=== PATIENT | female | born 1955 | race Caucasian/White ===

== ENCOUNTER 2020-09-13 13:25 | Outpatient (REF) | payer MEDICARE, SELFPAY | END 2020-09-13 13:26 | disposition home or self-care (01) | LOC: HO.SCI 13:25 | PROVIDERS: Visit Provider Otolaryngology | DX: Z13.89 Encounter for screening for other disorder (principal) ==

== ENCOUNTER 2020-09-20 08:40 | Outpatient (REF) | payer MEDICARE, SELFPAY ==
--- NOTE | 2020-09-20 | MR_ITS ---
EXAMINATION: MR BRAIN WITHOUT AND WITH CONTRAST CLINICAL INFORMATION: Left-sided tinnitus. COMPARISON: None. TECHNIQUE: Multiplanar, multisequential imaging was obtained without and with intravenous contrast. Intravenous contrast: Gadavist 10 mL. FINDINGS: No diffusion abnormality is seen. Nonspecific subcentimeter foci of T2 hyperintense signal change in the cerebral white matter may be due to chronic microangiopathy. The ventricles are normal in size. No mass effect or midline shift is evident. No extra-axial fluid collections are noted. The brainstem and cerebellum are normal. There is no abnormal parenchymal or leptomeningeal enhancement. The VII and VIII cranial nerve complexes are normal in course and caliber. No signal abnormality is visualized within the inner ear structures on the precontrast axial T1-weighted sequence. Fluid signal is preserved within the cochlea, semicircular canals, and vestibule on the high-resolution axial FIESTA sequence. No cerebellopontine angle lesion is noted. There is no abnormal labyrinthine or intracanalicular enhancement on postcontrast imaging. The craniovertebral junction, marrow signal, and midline structures are normal. The gradient acquisition is normal. The visualized portions of the major intracranial flow voids at the level of the [place] are preserved. The dural venous sinus flow voids are maintained. The mastoid air cells and paranasal sinuses are fairly well aerated. MR/MR head/brain wo/w con IMPRESSION: No retrocochlear pathology. Nonspecific mild scattered white matter signal changes which may be due to chronic microangiopathy.
[2020-09-20 09:25] LABS: Blood Urea Nitrogen 13 mg/dL (9-16); Estimated Glomerular Filt Rate > 60
== END 2020-09-20 08:41 | disposition home or self-care (01) ==
LOC: HO.MRI 08:40
PROVIDERS: PCP Internal Medicine; Visit Provider Otolaryngology
DX: D33.3 Benign neoplasm of cranial nerves (principal); H93.13 Tinnitus, bilateral
CPT/HCPCS: 36415; 70553; 82565; 84520; A9585

== ENCOUNTER 2025-06-17 10:26 | Outpatient (AMB) | payer MEDICARE, SELFPAY | END 2025-06-17 10:27 | disposition home or self-care (01) | LOC: HO.HMGAL 10:26 | PROVIDERS: PCP Nurse Practitioner Family; Visit Provider Registered Nurse Emergency | DX: J30.89 Other allergic rhinitis (principal) | CPT/HCPCS: 95117; 95165 ==

== ENCOUNTER 2025-06-25 10:17 | Outpatient (REF) | payer MEDICARE, SELFPAY ==
[2025-06-25 11:25] LABS: MANUAL DIFF FLAG NO
[2025-06-25 12:24] LABS: Hematocrit 38.4 % (37.0-47.0); Hemoglobin 11.5 g/dl (12.0-16.0); Imm Gran Abs Auto 0.04 X10*3/uL (0.00-0.03); Imm Gran Pct Auto 0.5 % (0.0-0.4); Lymphocytes Absolute Auto 1.5 X10*3/uL (1.2-4.9); Mean Corpuscular HGB Conc 29.9 g/dl (31.0-35.0); Mean Corpuscular Hemoglobin 21.9 pg (27.0-33.0); Mean Corpuscular Volume 73.0 fL (80.0-98.0); NRBC Abs Auto 0.000 X10*3/uL (0.0-0.012); NRBC Pct Auto 0.0 /100WBC (0.0-0.2); Platelet Count 276 X10*3/uL (160-400); Red Blood Count 5.26 X10*6/uL (4.20-5.50); White Blood Count 8.6 X10*3/uL (4.8-10.8)
[2025-06-30 03:14] LABS: Class Alternaria alternata 0/1; Class Aspergillus fumigatus 0; Class Bermuda Grass 0; Class Birch 0; Class Cat Dander 0/1; Class Cladosporium herbarum 0; Class Cockroach 0; Class Common Ragweed 0; Class Cottonwood 0; Class Derm. pterony 0; Class Dermatophagoides farinae 0; Class Dog Dander 0; Class Elm 0; Class Maple Box Elder 0; Class Mountain Cedar 0; Class Mouse Urine Protein 0; Class Mugwort 0; Class Oak 0; Class Penicillium crysogenum 0; Class Rough Pigweed 0; Class Sheep Sorrel 0; Class Sycamore 0; Class Timothy Grass 0; Class Walnut Tree 0; Class White Ash 0; Class White Mulberry 0; D002 - IgE D farinae <0.10 kU/L; E001 - IgE Cat Dander 0.11 kU/L; E005 - IgE Dog Dander <0.10 kU/L; G006 - IgE Timothy Grass <0.10 kU/L; I006-IgE Cockroach, German <0.10 kU/L; M002 - IgE Cladosporium herbar <0.10 kU/L; M003 - IgE Aspergillus fumigat <0.10 kU/L; M006 - IgE Alternaria alternat 0.27 kU/L; T001 IgE Maple/Box Elder <0.10 kU/L; T006 - IgE Cedar, Mountain <0.10 kU/L; T007 - IgE Oak, White <0.10 kU/L; T008 IgE Elm, American <0.10 kU/L; T010 - IgE Walnut <0.10 kU/L; T011 - IgE Maple Leaf Sycamore <0.10 kU/L; T014 - IgE Cottonwood <0.10 kU/L; T015 - IgE Ash, White <0.10 kU/L; T070 - IgE White Mulberry <0.10 kU/L; W001 - IgE Ragweed, Short <0.10 kU/L; W006 - IgE Mugwort <0.10 kU/L; W014 IgE Pigweed, Common <0.10 kU/L; W018 IgE Sheep Sorrel <0.10 kU/L
[2025-07-01 13:45] LABS: Asperg fumigatus Precip Abs NEGATIVE; Micropoly faeni Abs NEGATIVE; Saccharo pora viridis Abs NEGATIVE; Thermo candidus Abs NEGATIVE
== END 2025-06-25 10:18 | disposition home or self-care (01) ==
LOC: HO.LAB 10:17
PROVIDERS: PCP Nurse Practitioner Family; Referring Provider Nurse Practitioner Family; Visit Provider Hospitalist
DX: J44.89 Other specified chronic obstructive pulmonary disease (principal); T78.40XA Allergy, unspecified, initial encounter; G47.33 Obstructive sleep apnea (adult) (pediatric); R91.8 Other nonspecific abnormal finding of lung field
CPT/HCPCS: 36415; 82103; 82784; 82785; 85025; 85652; 86003; 86331; 86606; 86609; 99202

== ENCOUNTER 2025-06-25 10:17 | Outpatient (AMB) | payer MEDICARE, SELFPAY ==
--- NOTE | 2025-06-25 10:19 | A.OFFVIS_ITS ---
Vital Signs 06/25/25 10:23 Height 5 ft 3 in Weight 272 lb 4.334 oz BMI 48.2 BP 148/70 H Blood Pressure Location Rt brachial Position Sitting Pulse 76 Pulse Source Pulse Oximeter Pulse Oximetry (%) 96 Oxygen Delivery Method Room Air Intake Visit Reasons: COPD Government Contracts Manager Required: No Accompanied by: Self / Same As Patient Allergies lisinopril Allergy (Intermediate, Verified 06/25/25 10:24) cough HPI Comments Details: The patient is here for pulmonary evaluation. The patient is a 69 year woman, active smoker, presenting with worsening respiratory symptoms. The patient is participating in the lung cancer screening program at [facility]. We did personally review her last CT scan demonstrating some minimal emphysema and some pulmonary nodules subcentimeter in nature. However, more significant the patient did have significant calcifications of the major vessels in addition to the coronary arteries. The patient does have dyspnea on exertion. [id number]-rq-dchbyddr severity. Denies any chest pain. She did start her rescue inhaler. She did undergo pulmonary function studies which I personally reviewed. There were done at [facility]. The patient appears to have a mild obstructive ventilatory defect consistent with asthma COPD overlap syndromes specially with a history of asthma as a child. Therefore, will go ahead and start her on a maintenance inhaler. the patient also complains of significan Productive cough. Some degree it is postnasal with the upper airway cough syndrome she does have significant cobblestoning in the back of the throat. Also has significant allergies. Will go ahead and request blood work at this time to assess her eosinophilic level and IgE levels in addition to other immunoglobulins. The patient may be a candidate for biologic therapy she continues to be symptomatic specially with her significant ongoing symptoms. The patient has also been on CPAP. CPAP therapy has been affecting beneficial she does use it for more than 4 hours a night. She will bring her CPAP to the next visit so we can download the data and assess her response to therapy. [facility] Medical History (Updated 06/25/25 @ 21:08 by Theron Toro MD) NATASHA (obstructive sleep apnea) Asthma-COPD overlap syndrome Allergies Social History (Updated 06/25/25 @ 10:27 by Astrid Mejia CMA) Patient Tobacco Use Status: Current everyday Tobacco user Review of Systems Const Denies snoring Eyes Reports no additional complaints ENT Reports nasal congestion, Reports nasal discharge, Reports nasal obstruction and Reports post nasal drip Card Denies chest pain and Reports dyspnea on exertion Resp Reports chest congestion, Reports cough, Reports dyspnea on exertion, Denies snoring and Reports wheezing GI Reports no additional complaints Musc Reports myalgias Skin/Breast Denies rash Neuro Reports no additional complaints Endo Reports no additional complaints Kenan/Lymph Reports no additional complaints Aller/Immun Reports wheezing Physical Exam Vital Signs: Last Vital Signs Pulse 76 06/25/25 10:23 BP 148/70 H 06/25/25 10:23 Pulse Ox 96 06/25/25 10:23 Oxygen Delivery Method Room Air 06/25/25 10:23 BMI result Body Mass Index 48.2 Const General: comfortable HEENT Head: Yes normocephalic Neck Neck: Yes supple Chest Chest palpation & inspection: normal inspection of the chest Resp Effort & Inspection: normal respiratory effort Auscultation: diminished lung sounds Cardio Heart sounds: S1 normal heart sound present and S2 normal heart sound present GI Palpation (GI): Soft to palpation Skin General skin exam: no rashes or lesions noted Extrem General: No cyanosis Assessment & Plan Assessment & Plan (1) Asthma-COPD overlap syndrome: Code(s): J44.89 - Other specified chronic obstructive pulmonary disease Category: Medical (2) Allergies: Code(s): T78.40XA - Allergy, unspecified, initial encounter Category: Medical Qualifiers: Encounter type: initial encounter Qualified Code(s): T78.40XA - Allergy, unspecified, initial encounter (3) NATASHA (obstructive sleep apnea): Code(s): G47.33 - Obstructive sleep apnea (adult) (pediatric) Category: Medical Plan Bloodwork and allergy testing start Dulera GIOVANNI as needed continue Fluticasone nasal spray start Astelin nasal spray Continue zyrtec consider Singulair Tobacco cessation: will cut down Would recommend a Cardiology eval or cardiac stress test in viewof extensive athlerosclorosis on CT chest and +FHx Orders: Orders Complete Blood Count Auto Diff Today J44.89 - Other specified chronic obstructive pulmonary disease, T78.40XA - Allergy, unspecified, initial encounter Hypersensitive Pneumonitis Prf Today J44.89 - Other specified chronic obstructive pulmonary disease, R91.8 - Other nonspecific abnormal finding of lung field, T78.40XA - Allergy, unspecified, initial encounter Resp Allergy Profile Region I Today J44.89 - Other specified chronic obstructive pulmonary disease, R91.1 - Solitary pulmonary nodule, T78.40XA - Allergy, unspecified, initial encounter Erythrocyte Sedimentation Rate Today J44.89 - Other specified chronic obstructive pulmonary disease, T78.40XA - Allergy, unspecified, initial encounter Immunoglobulin E Today J44.89 - Other specified chronic obstructive pulmonary disease, T78.40XA - Allergy, unspecified, initial encounter Immunoglobulins,IgG IgA IgM Today J44.89 - Other specified chronic obstructive pulmonary disease, T78.40XA - Allergy, unspecified, initial encounter Alpha 1 Anti-trypsin Today J44.89 - Other specified chronic obstructive pulmonary disease, T78.40XA - Allergy, unspecified, initial encounter Medications: New azelastine administer into each nostril 2 sprays intranasal BID 30 mL 6RF 30 days mometasone-formoterol 200-5 mcg/actuation (Dulera) 2 puffs inhalation Q12H 13 grams 11RF 30 days Coding Level of Care Code New Pt Level 5 (80590) Diagnoses Asthma-COPD overlap syndrome J44.89 Allergy, initial encounter T78.40XA Encounter type: initial encounter NATASHA (obstructive sleep apnea) G47.33 Time Spent (min) 60
[2025-06-25 10:23] VITALS: BP 148/70; PULSE 76; O2SAT 96; BMI 48.2
--- OUTSIDE RECORDS SUMMARY | 2025-06-25 12:41 | XMS_ITS | Clinical Summary ---
Author Organization [facility] Address [address] [place] [address] Care Team Providers Care Software Sales Manager Name Role Phone Dimas Fox MD Primary Care Provider [phone] Allergies Active Allergy Reactions Criticality Noted Date Comments Lisinopril Other (See Comments) 11/02/2021 Medications Medication Sig Dispensed Refills Start Date End Date Status cetirizine (ZyrTEC) 10 MG tablet Take 10 mg by mouth daily. 0 02/10/2021 Active losartan-hydrochloro thiazide (HYZAAR) 100-25 MG per tablet Take 1 tablet by mouth daily. 0 02/14/2021 Active aspirin 81 MG chewable tablet Chew 81 mg by mouth daily. 0 Active HYDROcodone-acetamin ophen (NORCO) 5-325 MG per tablet Take 1 tab every 6 hours as needed for pain following your right knee surgery 20 tablet 0 07/06/2021 Active Active Problems Problem Noted Date Diagnosed Date Acute medial meniscus tear of right knee 021 MCL sprain of right knee 05/18/2021 Effusion of right knee joint 05/11/2021 Family History Medical History Relation Name Comments Hypertension Brother Hypertension Father Cancer Mother Relation Name Status Comments Brother Father Mother Social History Tobacco Use Types Packs/Day Years Used Date Smoking Tobacco: Every Day Cigarettes 1 Smokeless Tobacco: Never Alcohol Use Standard Drinks/Week Comments Yes 0 (1 standard drink = 0.6 oz pur e alcohol) Sex and Gender Information Value Date Recorded Sex Assigned at Not on file Gender Identity Not on file Sexual Orientation Not on file Job Start Date Occupation Industry Not on file Not on file Not on file Last Filed Vital Signs Vital Sign Reading Time Taken Comments Blood Pressure - - Pulse - - Temperature - - Respiratory Rate - - Oxygen Saturation - - Inhaled Oxygen Concentration - - Weight 117.9 kg (260 lb) 07/06/2021 10:48 AM EDT Height 165.1 cm (5' 5 ) 07/06/2021 10:48 AM EDT Body Mass Index 43.27 07/06/2021 10:48 AM EDT Plan of Treatment Health Maintenance Due Date Last Done Comments Hepatitis C Screening 1955 COVID-19 Vaccine (#1) [birth year]14[birth year]1956 Depression Screening 1967 BMI Counseling 1973 Preventative Health Evaluation 1973 Tobacco Cessation Counseling 1973 Colon Cancer Screening (Colonoscopy) 2000 Breast Cancer Screening (Mammogram) 2005 Shingrix-Zoster Vaccine (1 of 2) 2005 DTap / Tdap / Td (1 - Tdap) 03/22/2016 03/21/2016 Fall Risk Assessment 2020 Osteoporosis Screening (DEXA Scan) 2020 Pneumococcal Vaccine (2 of 2 - PPSV23 or PCV20) 11/26/2020 10/01/2020 Influenza Vaccine (#1) 2025 9, 06/19/2018, 07/03/2017, Additional history exists RSV Adult > 60+ Yrs or (1 - 1-dose 75+ series) 2030 Hepatitis B Vaccines Aged Out No long er eligible based on patient's age to complete this topic RSV Ped < 20 months Aged Out No longe r eligible based on patient's age to complete this topic Care Teams Software Sales Manager Relationship Specialty Start Date End Date Dimas Fox MD [address] [facility], [address] [place] [address] PCP - General Fire Medic 04/20/21
== END 2025-06-25 10:59 | disposition home or self-care (01) ==
LOC: HO.HPS 10:18
PROVIDERS: PCP Nurse Practitioner Family; Referring Provider Nurse Practitioner Family; Visit Provider Hospitalist
DX: J44.89 Other specified chronic obstructive pulmonary disease (principal); T78.40XA Allergy, unspecified, initial encounter; G47.33 Obstructive sleep apnea (adult) (pediatric)
CPT/HCPCS: 99205